=== PATIENT | female | born 1955 | race Two or more races ===

== ENCOUNTER 2020-05-12 10:27 | Inpatient (IN) | payer MEDICARE ==
[~2020-05-12] VITALS: Ht 152.4 cm; Wt 82.6 kg
[2020-05-12 11:23] VITALS: BP 143/88
[2020-05-12] MEDS ORDERED: IPRATRPIUM/ALBUTEROL 0.5/2.5MG 3 ML NEBU. ONE (12:10)
[2020-05-12 12:17] LABS: BASO # 0.2 x10^3/uL (0.0-0.2); BASO % 2 % (0-3); EOS # 0.3 x10^3/uL (0.0-0.7); EOS % 2 % (0-3); HEMATOCRIT 46.1 % (36.0-47.0); HEMOGLOBIN 15.1 g/dL (12.0-15.5); LYMPH # 1.8 x10^3/uL (1.0-4.8); LYMPH % 15 % (24-48); MEAN CORPUSCULAR HEMOGLOBIN 30 pg (25-35); MEAN CORPUSCULAR HGB CONC 33 g/dL (31-37); MEAN CORPUSCULAR VOLUME 90 fL (79-100); MONO % 9 % (0-9); NEUT % 73 % (31-73); PLATELET COUNT 352 x10^3/uL (140-400); RED BLOOD COUNT 5.11 x10^6/uL (3.50-5.40); RED CELL DISTRIBUTION WIDTH 14.5 % (11.5-14.5); WHITE BLOOD COUNT 12.3 x10^3/uL (4.0-11.0)
[2020-05-12] MEDS ORDERED: ALBU2.5V5 NEB (12:27)
[2020-05-12] MEDS ORDERED: FLUT1BLS3 IH (12:27)
[2020-05-12] MEDS ORDERED: ATEN50TA PO (12:27)
[2020-05-12 12:32] LABS: BACTERIA,URINE 0 /HPF (0-FEW); BILIRUBIN,URINE NEG (NEG); CLARITY,URINE CLEAR; COLOR,URINE AMBER; GLUCOSE,URINE NEG (NEG); NITRITE,URINE NEG (NEG); RBC,URINE 0 /HPF (0-2); UROBILINOGEN,URINE 0.2 mg/dL (0.2 mg/dL); WBC,URINE 0 /HPF (0-4)
[2020-05-12 12:51] LABS: ALBUMIN 3.5 g/dL (3.4-5.0); ALBUMIN/GLOBULIN RATIO 0.8 (1.0-1.7); CREATININE 1.1 mg/dL (0.6-1.0); POTASSIUM 4.1 mmol/L (3.5-5.1); TOTAL BILIRUBIN 0.2 mg/dL (0.2-1.0); TOTAL PROTEIN 7.7 g/dL (6.4-8.2)
[2020-05-12] MEDS ORDERED: SULF1TAB24 PO (13:03)
--- NOTE | 2020-05-12 13:54 | NUR ---
NURSING NOTE: ADMISSION NOTE PT DIRECT ADMIT TO ROOM 117 FOR DIAGNOSIS OF COPD EXACERBATION AND URINARY RETENTION. UPON ADMISSION PT COMPLAINS OF INABILITY TO URINATE, DIZZINESS SINCE SATURDAY, NAUSEATED, RINGING IN HER EARS, WEAKNESS. PT WAS SEEN AT THE CLINIC AND WAS GIVEN AN ANTIBIOTIC AND MECLIZINE. PT REPORTS HISTORY OF COPD, HTN, ASTHMA, SKIN CANCER, AND DEPRESSION. PT ONLY REPORTS MEDICATION USE OF ATENOLOL, DUONEB, AND TRELLEGY INHALER. PT SETTLED IN ROOM. DR. MARCANO NOTIFIED OF ADMISSION. WILL CONTINUE TO MONITOR. FAMILIA CABRERA
--- NOTE | 2020-05-12 13:58 | NUR ---
NURSING NOTE: URINE RETENTION. PT BLADDER SCANNED, OVER 750 MLS OF URINE RETAINED. PT UNABLE TO VOID. ORDER OBTAINED FROM DR. MARCANO FOR PLACEMENT OF VELÁZQUEZ CATHETER. CATHETER INSERTED, 800MLS OF URINE COLLECTED. SAMPLE SENT TO [facility]. FAMILIA CABRERA
--- NOTE | 2020-05-12 14:13 | EKG ---
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
--- NOTE | 2020-05-12 14:33 | RAD ---
CT HEAD INDICATION: Reason: olfactory hallucinations, vertigo / Spl. Instructions: / History: COMPARISON: None Available. Exposure: One or more of the following individualized dose reduction techniques were utilized for this examination: 1. Automated exposure control 2. Adjustment of the mA and/or kV according to patient size 3. Use of iterative reconstruction technique TECHNIQUE: 5 mm contiguous axial images were obtained from the skull base to the vertex in both bone and soft tissue algorithm. FINDINGS: Mild bilateral periventricular white matter hypodensities likely chronic small vessel ischemic disease. No evidence of acute intracranial hemorrhage. No extra-axial fluid collections. No mass effect or midline shift. Ventricular size is appropriate. Basal cisterns are patent. No fractures identified.Bang-white differentiation is preserved.Globes and orbits are within normal limits. Paranasal sinuses and mastoid air cells are clear. IMPRESSION: No acute intracranial findings. Electronically signed by: Norman Holt MD (05/12/2020 2:30 PM) [id number]
[2020-05-12] MEDS: IPRATRPIUM/ALBUTEROL 0.5/2.5MG 3 ML NEBU. NEB SCH ×2 (15:07→20:43)
[2020-05-12 15:41] VITALS: BP 141/88
[2020-05-12 15:42] VITALS: BP_SYST 136; BP_SYST 144; BP_DIAS 88
[2020-05-12 16:29] VITALS: BP 122/80
--- NOTE | 2020-05-12 17:00 | RAD ---
EXAM: CHEST PA LATERAL INDICATION: Reason: copd exacerbation, soa / Spl. Instructions: / History: . TECHNIQUE: PA and lateral views COMPARISON: Chest x-ray 11/08/2008 FINDINGS: The heart size is normal. The great vessels appear unremarkable. There is no hilar or mediastinal mass. Mild diffuse peribronchial thickening. No focal infiltrates. There is no pleural effusion or pneumothorax. There are no significant osseous abnormalities. IMPRESSION: Mild diffuse peribronchial thickening. This could represent bronchiolitis in the setting of COPD flare. Electronically signed by: Michelle Jaimse MD (05/12/2020 4:57 PM) [id number]
[2020-05-12] MEDS ORDERED: MAG HYDROX/AL HYDROX/SIMETH 30 ML ORAL.SUSP PO PRN (18:00)
[2020-05-12] MEDS ORDERED: ACETAMINOPHEN 500 MG TABLET PO PRN (18:00)
[2020-05-12] MEDS: IV 1/2 NORMAL SALINE 1,000 ML IV SCH (18:15)
[2020-05-12 19:35] VITALS: BP 111/75
[2020-05-12] MEDS: TAMSULOSIN 0.4 MG CAP.ER.24H. PO SCH (20:30)
[2020-05-12] MEDS: AZITHROMYCIN 250 MG TABLET. PO SCH (20:30)
[2020-05-12] MEDS: ZOLPIDEM 5 MG TABLET. PO PRN (20:30)
--- NOTE | 2020-05-12 21:53 | NUR ---
Pt is very pleasant and cooperative w/ assessment. Pt denies any pain. POC was discussed w/ pt. Pt states that she hopes to be able to go home tomorrow. Pt was given Ambien w/ HS meds as tolerated. Pt is now resting w/ call light in reach.
[2020-05-12] MEDS: methylPREDNISolone SOD SUCC PF 40 MG/ML VIAL. IV SCH (22:13)
[2020-05-12 23:07] VITALS: BP 119/68
[2020-05-13] MEDS: IPRATRPIUM/ALBUTEROL 0.5/2.5MG 3 ML NEBU. NEB SCH ×4 (05:11→21:23)
[2020-05-13 05:20] VITALS: BP 120/79
[2020-05-13] MEDS: IV 1/2 NORMAL SALINE 1,000 ML IV SCH ×2 (07:20→20:40)
[2020-05-13] MEDS: LACTOBACILLUS RHAMNOSUS GG 1 CAPSULE. PO SCH ×2 (08:33→21:28)
[2020-05-13] MEDS: methylPREDNISolone SOD SUCC PF 40 MG/ML VIAL. IV SCH ×2 (08:34→21:28)
[2020-05-13] MEDS: AZITHROMYCIN 250 MG TABLET. PO SCH (08:34)
[2020-05-13 10:34] VITALS: BP 124/79
--- NOTE | 2020-05-13 13:01 | NUR ---
NSG NOTE; STRAIGHT CATH VELÁZQUEZ REMOVED AT 0800. PT STATES BLADDER FEELS FULL BUT SHE IS UNABLE TO VOID. BLADDER SCAN SHOWS 500+ MLS URINE. STRAIGHT CATH AT [address] MARCANO NOTIFIED
[2020-05-13] MEDS: BETHANECHOL CHLORIDE 25 MG TABLET PO SCH ×2 (13:06→17:36)
--- NOTE | 2020-05-13 13:34 | RAD ---
EXAM: Abdomen and pelvis CT without intravenous contrast. HISTORY: Urinary retention. TECHNIQUE: Computed tomographic images of the abdomen and pelvis were obtained without contrast. Multiplanar reformatting was performed. *One or more of the following individualized dose reduction techniques were utilized for this examination: 1. Automated exposure control. 2. Adjustment of the mA and/or kV according to patient size. 3. Use of iterative reconstruction technique. COMPARISON: None. FINDINGS: Evaluation of the lower thorax demonstrates emphysema, lingular scarring and basilar atelectasis. There is no infiltrate or pleural effusion. There is hepatic steatosis. There is cholelithiasis. The pancreas, spleen and adrenal glands are unremarkable. There is no hydronephrosis. No solid or cystic renal lesion is seen on this noncontrast exam. There is no renal or ureteral stone. There is a tiny focus of gas within a relatively decompressed urinary bladder. The uterus and adnexal regions are unremarkable. There is no appendicitis. There is no bowel obstruction. There is no abnormal bowel wall thickening. There is sigmoid diverticulosis. There is no diverticulitis. There is aortobiiliac atherosclerosis. There is an incidental retroaortic left renal vein. There is no lymphadenopathy. There are degenerative changes involving the spine, primarily at the lumbosacral junction. IMPRESSION: 1. No acute abdominal or pelvic finding. There is a tiny focus of gas within the urinary bladder which is likely due to recent catheterization. 2. Sigmoid diverticulosis. 3. Hepatic steatosis. 4. Cholelithiasis. Electronically signed by: Anila Mitchell MD (05/13/2020 1:31 PM) [id number]
[2020-05-13 14:32] VITALS: BP 125/80
--- NOTE | 2020-05-13 18:26 | NUR ---
NSG NOTE; PT VOIDED 100 ML BUT HAS 225 ML RETAINED IN HER BLADDER PER THE BLADDER SCANNER. URECHOLINE HAS BEEN STARTED PER DR MARCANO'S OFFICE
[2020-05-13 19:35] VITALS: BP 129/77
[2020-05-13] MEDS: TAMSULOSIN 0.4 MG CAP.ER.24H. PO SCH (21:28)
[2020-05-13] MEDS: ZOLPIDEM 5 MG TABLET. PO PRN (21:30)
[2020-05-13 22:51] VITALS: BP 118/82
--- NOTE | 2020-05-14 00:17 | PN ---
DATE: 05/13/2020 SUBJECTIVE: A 64-year-old female with acute exacerbation of COPD, bronchiolectasis and the patient also had urinary retention. We tried her with __. She is still retain over 500 mL of urine, still could not go very well. The patient in turn will be tried on putting her on additional medication to help her with her bladder atony including bethanechol 25 mg 3 times a day. It does seem that does not help her. The patient is otherwise resting comfortably. Lung seems to be doing somewhat better. Oxygen saturation has been going up steadily to 95%. OBJECTIVE: VITAL SIGNS: Blood pressure 125/80, respiratory rate 22, pulse 95, afebrile. GENERAL: The patient is alert and oriented. LUNGS: Diminished throughout, poor movement of air. CARDIOVASCULAR: Regular sinus rhythm. ABDOMEN: Protuberant, soft, nontender. DIAGNOSTIC STUDIES: Abdominal CT scan did not demonstrate anything really significant, some sigmoid diverticulosis, hepatic steatosis and cholelithiasis. Otherwise, the patient is doing well. IMPRESSION: Acute exacerbation of chronic obstructive pulmonary disease with acute bronchitis and also urinary retention, diverticulosis as well as cholelithiasis, and acute on top of chronic respiratory distress, receiving breathing treatments as well as IV methylprednisolone. KHADRA MARCANO MD DR: KULDIP/shane JOB#: [id number] / [id number]
[2020-05-14] MEDS: IPRATRPIUM/ALBUTEROL 0.5/2.5MG 3 ML NEBU. NEB SCH (05:23)
[2020-05-14 06:13] VITALS: BP 135/83
[2020-05-14] MEDS: BETHANECHOL CHLORIDE 25 MG TABLET PO SCH (08:12)
[2020-05-14] MEDS: methylPREDNISolone SOD SUCC PF 40 MG/ML VIAL. IV SCH (08:12)
[2020-05-14] MEDS: LACTOBACILLUS RHAMNOSUS GG 1 CAPSULE. PO SCH (08:12)
[2020-05-14] MEDS: AZITHROMYCIN 250 MG TABLET. PO SCH (08:12)
[2020-05-14] MEDS: IV 1/2 NORMAL SALINE 1,000 ML IV SCH (09:13)
[2020-05-14] MEDS ORDERED: IPRA3AMP29 NEB (09:41)
[2020-05-14] MEDS ORDERED: TAMS0.4C97 PO (09:41)
[2020-05-14] MEDS ORDERED: Bethanechol Chloride PO (09:41)
[2020-05-14] MEDS ORDERED: AZIT250T6 PO (09:41)
[2020-05-14] MEDS ORDERED: PRED-220 PO (09:41)
--- NOTE | 2020-05-14 10:02 | NUR ---
PATIENT IS DISCHARGED HOME WITH SELF CARE. PATIENT IS STABLE AT TIME OF DISCHARGE. PATIENT'S IV IS D/C'D AND TELE MONITOR REMOVED. PT HAS ALL BELONGINGS WITH SELF AT TIME OF DISCHARGE. PATIENT IS W/C'D OF OF UNIT ACCOMPANIED BY STAFF.
--- NOTE | 2020-05-14 14:42 | DS ---
DATE OF DISCHARGE: 05/14/2020 HOSPITAL COURSE: The patient is a 64-year-old female who was admitted with exacerbation of COPD. She had difficulty breathing. Her oxygen saturation dropped down in the low 80s, but with oxygen, came up nicely. The patient was having difficulty breathing. She was placed on IV steroids, aggressive pulmonary toilet, made good progress there. She was also having comorbidity of urinary retention and had not been able to urinate for some time. Her bladder was 800 mL per bladder scan. Pozo catheter was placed to continue to deflate the bladder and help her regaining her use of such placed on Flomax, bethanechol and Urecholine 25 mg 3 times a day. She had also been placed on antibiotics. She made reasonably good progress with her oxygenation and she came up-to-date on room air above 90%, which is something of an accomplishment for her and at times, she was high as 97% with the steroids. She made excellent progress. The bethanechol helped her with her urinary incontinence and she was discharged home for followup as an outpatient. IMPRESSION: Acute on top of chronic respiratory failure, acute exacerbation of chronic obstructive pulmonary disease, hyperglycemia, chronic renal failure, urinary retention, cholelithiasis, diverticulosis, hepatic steatosis. PLAN: The patient will be discharged home. Follow up as an outpatient. KHADRA MARCNAO MD DR: KULDIP/shane JOB#: [id number] / [id number]
== END 2020-05-14 10:03 | disposition home or self-care (01) | DRG 189 ==
LOC: 1 SOUTH 10:45
PROVIDERS: ADMIT Family Medicine; ATTEND Family Medicine
DX: J96.20 Acute and chronic respiratory failure, unspecified whether with hypoxia or hypercapnia (principal); J44.0 Chronic obstructive pulmonary disease with (acute) lower respiratory infection; J44.1 Chronic obstructive pulmonary disease with (acute) exacerbation; J20.9 Acute bronchitis, unspecified; K57.90 Diverticulosis of intestine, part unspecified, without perforation or abscess without bleeding; K76.0 Fatty (change of) liver, not elsewhere classified; N18.9 Chronic kidney disease, unspecified; R33.9 Retention of urine, unspecified; K80.20 Calculus of gallbladder without cholecystitis without obstruction; R73.9 Hyperglycemia, unspecified; Z85.828 Personal history of other malignant neoplasm of skin; Z82.49 Family history of ischemic heart disease and other diseases of the circulatory system; Z80.8 Family history of malignant neoplasm of other organs or systems
CPT/HCPCS: 36415; 70450; 71046; 74176; 80053; 81001; 83880; 84443; 84484; 85025; 93005; 94640; J0456; J2920; J7030